=== PATIENT | female | born 1950 | race American Indian/Alaskan Native ===

== ENCOUNTER 2017-04-14 14:15 | Outpatient (CLI) | payer MEDICARE ==
--- NOTE | 2017-04-14 15:59 | XRay Report ---
Right ankle: Pain with history of fracture. There is an oblique fracture through the distal shaft of the fibula as well as a nondisplaced medial malleolar fracture. The fibula fracture is slightly with minimal offset but relatively good alignment. There is evidence of minimal/early healing. The bones appear generally slightly demineralized. There is calcification of the posterior tibial artery and there is generalized mild edema of the soft tissues. Impression: Fractures as described with minimal healing. Vascular calcification raises suspicion of metabolic disorder.
== END 2017-04-14 14:16 | disposition home or self-care (01) ==
LOC: SPVIMAG 14:15
PROVIDERS: ATTEND Orthopaedic Surgery
DX: M89.8X6 Other specified disorders of bone, lower leg (principal); S82.491D Other fracture of shaft of right fibula, subsequent encounter for closed fracture with routine healing; X58.XXXD Exposure to other specified factors, subsequent encounter